=== PATIENT | male | born 1980 | race Caucasian/White ===

== ENCOUNTER 2021-05-10 17:33 | Emergency (ER) | payer OTHER, BC ==
[~2021-05-10] VITALS: Ht 177.8 cm; Wt 102.1 kg
[2021-05-10 17:36] VITALS: BP 143/91
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
[2021-05-10] MEDS ORDERED: NACL 0.9% 1,000 ML IV ONE (18:25)
[2021-05-10] MEDS ORDERED: MORPHINE SULFATE 4 MG/ML SYR IVP ONE (18:25)
[2021-05-10] MEDS ORDERED: ONDANSETRON 4 MG/2 ML VIAL IVP ONE (18:45)
[2021-05-10 18:55] LABS: BASOPHILS % (AUTO) 0.3 % (0.0-2.0); EOSINOPHILS # (AUTO) 0.1 K/uL (0-0.4); EOSINOPHILS % (AUTO) 1.6 % (0.0-4.0); HEMATOCRIT 44.5 % (36-52); LYMPHOCYTES # (AUTO) 2.3 K/uL (2.0-11.5); LYMPHOCYTES % (AUTO) 29.7 % (20.5-51.1); MEAN CORPUSCULAR HEMOGLOBIN 31 pg (27-31); MEAN CORPUSCULAR HGB CONC 34 g/dL (33-37); MEAN CORPUSCULAR VOLUME 91.1 fL (80-94); MONOCYTES # (AUTO) 0.7 K/uL (0.8-1.0); MONOCYTES % (AUTO) 8.8 % (1.7-9.3); NEUTROPHILS # (AUTO) 4.6 K/uL (1.8-7.7); NEUTROPHILS % (AUTO) 59.6 % (42.2-75.2); PLATELET COUNT (AUTO) 283 K/uL (140-450); RED BLOOD CELL COUNT(AUTO) 4.89 MIL/uL (4.20-6.10); RED CELL DISTRIBUTION WIDTH 12.4 % (11.6-13.7); WHITE BLOOD COUNT (AUTO) 7.7 K/uL (4.8-10.8)
[2021-05-10 19:07] LABS: PROTHROMBIN TIME 10.4 secs (10.8-13.4)
[2021-05-10 19:10] LABS: ALBUMIN 3.5 g/dL (3.4-5.0); ANION GAP 11.7 (8-16); CARBON DIOXIDE 27.5 mmol/L (21-32); CREATININE 0.8 mg/dL (0.6-1.3); POTASSIUM 4.2 mmol/L (3.5-5.1); TOTAL BILIRUBIN 0.2 mg/dL (0.0-1.0)
[2021-05-10] MEDS ORDERED: LIDOCAINE 5% 1 EA PATCH TP SCH (19:20)
--- NOTE | 2021-05-10 19:51 | NUR ---
TAKEN TO CT AT THIS TIME.
--- NOTE | 2021-05-10 20:25 | NUR ---
BACK FROM CT
[2021-05-10] MEDS ORDERED: ACET-8386 PO (21:44)
[2021-05-10] MEDS ORDERED: IBUP-2213 PO (21:44)
[2021-05-10] MEDS ORDERED: LID5T TP (21:44)
[2021-05-10] MEDS ORDERED: ACET-2619 PO (21:44)
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
[2021-05-10 22:06] VITALS: BP 116/73
== END 2021-05-10 22:05 | disposition home or self-care (01) ==
LOC: MED 17:33
DX: S13.9XXA Sprain of joints and ligaments of unspecified parts of neck, initial encounter (principal); S33.5XXA Sprain of ligaments of lumbar spine, initial encounter; V89.2XXA Person injured in unspecified motor-vehicle accident, traffic, initial encounter; Y93.89 Activity, other specified; Y92.89 Other specified places as the place of occurrence of the external cause; Y99.8 Other external cause status
CPT/HCPCS: 36415; 71260; 72125; 72128; 72131; 74177; 80053; 85025; 85610; 96361; 96374; 96375; 99285; J2270; J2405; J7030; Q9967